=== PATIENT | male | born 1955 | race Caucasian/White ===

== ENCOUNTER 2021-11-30 16:51 | Inpatient (IN) | payer MEDICARE, OTHER ==
[~2021-11-30] VITALS: Ht 167.6 cm; Wt 69.0 kg
[2021-11-30 17:20] LABS: BASO % 0.6 % (0.0-2.0); EOS # 0.1 K/mm3 (0.0-0.7); EOS % 1.6 % (0.0-4.0); GRAN # 3.2 K/mm3 (1.4-6.5); GRAN % 64.8 % (42.2-75.2); LYMPH % 19.9 % (20.0-51.0); MEAN CELL VOLUME 86 fl (80.0-100.0); MEAN CORPUSCULAR HEMOGLOBIN 28 pg (27-31); MEAN CORPUSCULAR HGB CONC 33 g/dl (33.0-37.0); MEAN PLATELET VOLUME 8.8 fl (7.4-10.4); MONO # 0.6 K/mm3 (0.1-0.6); MONO % 12.7 % (1.7-9.3); PLATELET COUNT 233 K/mm3 (130-400); RED BLOOD COUNT 5.71 M/mm3 (4.20-5.60); REDCELL DISTRIBUTION WIDTH-CV 14.6 % (11.5-14.5)
[2021-11-30 17:47] LABS: ALANINE AMINOTRANSFERASE 15 U/L (0-55); ALKALINE PHOSPHATASE 87 U/L (40-150); ANION GAP 11 mmol/L (7-16); AST,SGOT 21 U/L (5-34); BILIRUBIN,TOTAL 0.5 mg/dL (0.2-1.2); BLOOD UREA NITROGEN 6 mg/dL (8-26); C-REACTIVE PROTEIN 3.38 mg/dL (0.00-0.50); CALCIUM 8.9 mg/dL (8.4-10.2); CARBON DIOXIDE 28 mmol/L (23-31); CHLORIDE 100 mmol/L (98-107); CREATININE, serum 0.77 mg/dL (0.72-1.25); GLUCOSE 113 mg/dL (70-99); POTASSIUM 4.2 mmol/L (3.5-4.5); SODIUM 139 mmol/L (136-145); TOTAL PROTEIN 7.1 gm/dL (6.2-8.1)
[2021-11-30 17:56] LABS: TROPONIN-I < 0.010 ng/mL (0.00-0.033)
[2021-11-30] MEDS ORDERED: CLARITIN 1010 MG/TAB PO (19:36)
[2021-11-30] MEDS ORDERED: THE MEDICINE SH1 T18 PO (19:37)
[2021-11-30] MEDS ORDERED: PROBIOTIC ACID1 EAC3 PO (19:38)
[2021-11-30] MEDS ORDERED: FLONASE NASAL S16 GM NS (19:39)
[2021-11-30] MEDS ORDERED: BREZTRI AEROS10.7 GM IH (19:40)
[2021-11-30] MEDS ORDERED: PROAIR HFA0.09 MG/AC IH (19:40)
[2021-11-30 21:29] VITALS: BP 155/84; PULSE 93; TEMP 97.5
[2021-11-30 23:46] VITALS: BP 130/90; PULSE 77; TEMP 97.9
[2021-12-01 02:50] LABS: ARTERIAL BLD GAS O2 SATURATION 90.9 % (92-100); ARTERIAL BLD GAS TCO2 CT 29.4; ARTERIAL BLOOD GAS BASE EXCESS 2.2 (-2-2); ARTERIAL BLOOD GAS PCO2 47.7 mmHg (35-45); ARTERIAL BLOOD GAS PO2 54.8 mmHg (80-100); ARTERIAL BLOOD GAS pH 7.39 (7.35-7.45)
[2021-12-01 03:43] VITALS: BP 135/66; PULSE 65; TEMP 97
--- NOTE | 2021-12-01 03:49 | NUR ---
PT ARRIVED TO THE MEDICAL FLOOR AROUND 2130HRS TO ROOM 312. PT A&O X4; VSS; O2 BPAP. PT DENIED CHEST PAIN, GENERAL PAIN, PALPITATIONS, N,V,D OR DIZZINESS. PT DID HAS SOME SOB, BUT STATED HIS BREATHING WAS MUCH BETTER. ADMISSIONS ASSESSMENT AND MED REC COMPLETE. PT ORIENTED TO ROOM AND HOSPITAL POLICY. POC DISCUSSED WITH PT. PT VERBALIZED UNDERSTANDING. ALL QUESTIONS AND CONCERNS ADDRESSED. PT EXPRESSED NO OTHER NEEDS AT THIS TIME. CALL LIGHT WITHIN REACH.
[2021-12-01 07:00] LABS: BASO % 0.5 % (0.0-2.0); GRAN # 1.7 K/mm3 (1.4-6.5); HEMATOCRIT 43.8 % (42.0-52.0); HEMOGLOBIN 14.2 g/dl (13.5-18.0); LYMPH # 0.4 K/mm3 (1.2-3.4); LYMPH % 19.2 % (20.0-51.0); MEAN CELL VOLUME 86 fl (80.0-100.0); MEAN CORPUSCULAR HEMOGLOBIN 28 pg (27-31); MEAN CORPUSCULAR HGB CONC 32 g/dl (33.0-37.0); MEAN PLATELET VOLUME 9.7 fl (7.4-10.4); MONO # 0.1 K/mm3 (0.1-0.6); MONO % 2.8 % (1.7-9.3); PLATELET COUNT 232 K/mm3 (130-400); REDCELL DISTRIBUTION WIDTH-CV 14.6 % (11.5-14.5)
[2021-12-01 07:10] LABS: CALCIUM 8.8 mg/dL (8.4-10.2); CREATININE, serum 0.6 mg/dL (0.72-1.25); POTASSIUM 4.4 mmol/L (3.5-4.5)
[2021-12-01 08:00] VITALS: BP 138/68; PULSE 93; TEMP 97.9
--- NOTE | 2021-12-01 09:23 | NUR ---
Scheduled medications given. Shift assessment performed. Patient currently requiring 4L of O2 via nasal cannula. States that his back is "just sore" but denies the need for interventions a this time. VSS. Patient A&O. Call light in reach.
[2021-12-01 12:00] VITALS: BP 134/71; PULSE 104; TEMP 98.2
--- NOTE | 2021-12-01 13:24 | NUR ---
Sw met with the pt to complete intake. Pt right away informed me that his niece is CM here at the hospital. Pt lives at home. Pt DPOA-HC(not in chart) his son, Óscar [phone]. Pt currently using BIPAP in hospital and uses nebulizer at home for COPD.Pt reports he has no PCP, but trying to get with [facility], however, his son thinks he should go to [facility]. He gets his medications from [facility], no trouble obtaining it. No other needs stated at this time. Sw to await further recommendations and follow up as needed. DC: Home
[2021-12-01 16:25] VITALS: BP 139/71; PULSE 91; TEMP 98.1
--- NOTE | 2021-12-01 17:44 | NUR ---
Patient has had an ok day. Currently requiring 3L of O2 via nasal cannula. VSS. Patient A&O. Denies any further pain, discomfort, SOA, or further needs at this time. Call light in reach.
[2021-12-01 20:15] VITALS: BP 143/66; PULSE 114; TEMP 98.6
[2021-12-01 23:33] VITALS: BP 115/60; PULSE 67; TEMP 97.4; TEMP 977.4
[2021-12-02 03:33] VITALS: BP 100/56; PULSE 61; TEMP 98.2
--- NOTE | 2021-12-02 06:00 | NUR ---
ASSESSMENT COMPLETE FOR THIS SHIFT. PT RESTING IN BED WATCHING TV. PT COMPLAINED OF BURNING/RAWNESS TO HIS SINUSES THAT HE RATED AN 8. PT REQUESTED TYLENOL. TYLENOL GIVEN. PT FELT THE TYLENOL HELPED. PT DENIED PALPITATIONS, N,V,D OR DIZZINESS. PT CONTINUES WITH SOME SOB WITH AMBULATION. PT EXPRESSED NO OTHER NEEDS AT THIS TIME. CALL LIGHT WITHIN REACH.
[2021-12-02 06:22] LABS: GRAN # 8.8 K/mm3 (1.4-6.5); GRAN % 89.7 % (42.2-75.2); HEMATOCRIT 43.2 % (42.0-52.0); HEMOGLOBIN 13.7 g/dl (13.5-18.0); LYMPH # 0.6 K/mm3 (1.2-3.4); LYMPH % 6.3 % (20.0-51.0); MEAN CELL VOLUME 87 fl (80.0-100.0); MEAN CORPUSCULAR HEMOGLOBIN 28 pg (27-31); MEAN CORPUSCULAR HGB CONC 32 g/dl (33.0-37.0); MEAN PLATELET VOLUME 9.3 fl (7.4-10.4); MONO # 0.4 K/mm3 (0.1-0.6); MONO % 3.7 % (1.7-9.3); PLATELET COUNT 247 K/mm3 (130-400); RED BLOOD COUNT 4.94 M/mm3 (4.20-5.60); REDCELL DISTRIBUTION WIDTH-CV 14.7 % (11.5-14.5)
[2021-12-02 06:36] LABS: CALCIUM 8.7 mg/dL (8.4-10.2); CREATININE, serum 0.75 mg/dL (0.72-1.25); POTASSIUM 4.6 mmol/L (3.5-4.5)
[2021-12-02 08:28] VITALS: BP 136/64; PULSE 84; TEMP 98
--- NOTE | 2021-12-02 09:25 | NUR ---
Initial visit attempt; Patient in isolation, Director Of [employer] talked with him from the door. He stated he is getting better and was receptive to Director Of Retail Analytics keeping him in her prayers.
--- NOTE | 2021-12-02 09:33 | NUR ---
Patient resting in bed upon entering the room. Patient c/o mild sinus dryness. Asked RT for humidification for O2. Patient currently on 4L O2 via NC and tolerating it well. Patient A&Ox4, and independent in the room. Call light is w/in reach. Patient encouraged to call if any needs arise.
[2021-12-02 12:10] VITALS: BP 166/61; PULSE 74; TEMP 98.1
[2021-12-02 17:21] VITALS: BP 153/76; PULSE 74; TEMP 98.1
--- NOTE | 2021-12-02 18:26 | NUR ---
Patient had nasal congestion that made him feel like he could not breathe. Hospitalist called and ordered flonase and mucinex. Humidification added to patient's O2 for patient comfort.
[2021-12-02 19:58] VITALS: BP 165/79; PULSE 109; TEMP 98.3
--- NOTE | 2021-12-02 22:32 | NUR ---
PATIENT ON 02@5L VIA IN PATIENT DID STATE THAT HE WOULD TRY BI-PAP TONIGHT TO ASSIST WITH BREATHING. PATIENT ALSO COMMUNICATION THAT HE DID QUIT SMOKING BUT CHEATED RECENTLY AND HIS BREATHING GOT WORSE. HE ALSO STATED THAT HE HAS BEEN EATING 30% OF MEALS AND DRINKING ALL OF ENSURE. HE DID STATE THAT HE GETS TIRED AND FULL. EDUCATED ON SPACING OUT MEALS AND TRYING TO DO MORE SMALL MEALS THEN BIG MEALS TO AID WITH BREATHING. CONTINUES ON LOVENOX FOR VTE, BLOOD CULTURES PENDING. PATIENT DOES GET SOB ON EXERTION. REMAINS ON CONTACT ISOLATION FOR PARAINFLUENZA. WILL CONTINUE TO MONITOR FOR ANY CHANGES.
[2021-12-02 23:53] VITALS: BP 125/73; PULSE 68; TEMP 97.4
--- NOTE | 2021-12-03 03:41 | NUR ---
PATIENT WAS PLACED ON BI-PAP THROUGHOUT NIGHT UNABLE TO SLEEP THROUGHOUT THE NIGHT PATIENT SEEMED RESTLESS. PATIENT UNABLE TO GET ANY SLEEP TONIGHT. NO PAIN NOTED JUST UNABLE TO RELAX. WILL CONTINUE TO MONITOR OR REPOSITION FOR COMFORT THROUGHOUT SHIFT.
[2021-12-03 06:43] LABS: BASO % 0.1 % (0.0-2.0); GRAN # 9.7 K/mm3 (1.4-6.5); GRAN % 89.1 % (42.2-75.2); HEMATOCRIT 45.6 % (42.0-52.0); HEMOGLOBIN 14.1 g/dl (13.5-18.0); LYMPH # 0.7 K/mm3 (1.2-3.4); LYMPH % 6.3 % (20.0-51.0); MEAN CELL VOLUME 89 fl (80.0-100.0); MEAN CORPUSCULAR HEMOGLOBIN 28 pg (27-31); MEAN CORPUSCULAR HGB CONC 31 g/dl (33.0-37.0); MEAN PLATELET VOLUME 9.5 fl (7.4-10.4); MONO # 0.4 K/mm3 (0.1-0.6); MONO % 3.9 % (1.7-9.3); PLATELET COUNT 278 K/mm3 (130-400); RED BLOOD COUNT 5.11 M/mm3 (4.20-5.60); REDCELL DISTRIBUTION WIDTH-CV 14.5 % (11.5-14.5)
[2021-12-03 07:04] LABS: CALCIUM 9.2 mg/dL (8.4-10.2); CREATININE, serum 0.68 mg/dL (0.72-1.25); POTASSIUM 4.5 mmol/L (3.5-4.5)
[2021-12-03 07:35] VITALS: BP 140/65; PULSE 79; TEMP 97.7
--- NOTE | 2021-12-03 09:12 | NUR ---
Shift assessment preformed. Scheduled medications given. Patient currently requring 4 L of O2 via nasal cannula. SOB noted when at rest. VSS. Patient A&O. Patient denies any pain, discomfort, or further needs at this time. Call light in reach.
[2021-12-03 11:24] VITALS: BP 132/71; PULSE 74; TEMP 98.1
[2021-12-03 15:26] VITALS: BP 141/67; PULSE 74; TEMP 98.3
--- NOTE | 2021-12-03 17:48 | NUR ---
Patient has had an uneventful day. Currently requiring 4L of O2 via nasal cannula. Dyspnea upon exertion noted. Patient denies any pain, discomfort, or further needs a this time. Call light in reach. VSS. Patient A&O.
--- NOTE | 2021-12-03 19:43 | NUR ---
PATIENT TO TRANSITION OFF OF BIPAP AT NIGHT TO NASAL CANULA RESPIRATORY THERAPIST SPOKE WITH PATIENT AND EDUCATED ON TRANSITION TO NASAL CANAL DUE TO PATIENT NOT HAVING BI-PAP AT HOME. PATIENT REMAINS ON SOLU-MEDROL TAPERING DOWN. PATIENT STATED HE FEELS MUCH BETTER TODAY MOVING AROUND MORE. STILL HAVING SOME SOB ON EXERTION AND RESPIRATORY THERAPIST STATED PATIENT SOUNDS TIGHT AND NOT WANTING TO TITRATE OFF OF 4 LITERS TONIGHT 02SAT HIGHEST 92% AT REST.
[2021-12-03 20:15] VITALS: BP 158/78; PULSE 106; TEMP 98.3
[2021-12-04 00:11] VITALS: BP 123/71; PULSE 81; TEMP 98.6
--- NOTE | 2021-12-04 03:40 | NUR ---
PATIENT SLEPT BETTER TONIGHT THEN LAST NIGHT. PATIENT WANTED TO WEAR BIPAP LAST NIGHT. EDUCATED PATIENT ON TRANSITION TO NASAL CANULA TOMORROW NIGHT. CONTINUES WITH SOLU-MEDROL, RT WORKING WITH PATIENT WELL. PATIENT AMBULATING AND MORE MOBILE TODAY. SLEEPING AT THIS TIME WILL CONTINUE TO MONITOR.
[2021-12-04 04:47] VITALS: BP 124/69; PULSE 63; TEMP 98.8
[2021-12-04 06:41] LABS: BASO % 0.1 % (0.0-2.0); GRAN # 6.8 K/mm3 (1.4-6.5); GRAN % 88.6 % (42.2-75.2); HEMATOCRIT 45.6 % (42.0-52.0); HEMOGLOBIN 14.3 g/dl (13.5-18.0); LYMPH # 0.5 K/mm3 (1.2-3.4); LYMPH % 6.6 % (20.0-51.0); MEAN CELL VOLUME 89 fl (80.0-100.0); MEAN CORPUSCULAR HEMOGLOBIN 28 pg (27-31); MEAN CORPUSCULAR HGB CONC 31 g/dl (33.0-37.0); MEAN PLATELET VOLUME 9.4 fl (7.4-10.4); MONO # 0.3 K/mm3 (0.1-0.6); MONO % 4.1 % (1.7-9.3); PLATELET COUNT 276 K/mm3 (130-400); RED BLOOD COUNT 5.13 M/mm3 (4.20-5.60); REDCELL DISTRIBUTION WIDTH-CV 14.4 % (11.5-14.5)
[2021-12-04 06:44] LABS: CALCIUM 9.3 mg/dL (8.4-10.2); CREATININE, serum 0.68 mg/dL (0.72-1.25); POTASSIUM 4.5 mmol/L (3.5-4.5)
[2021-12-04 07:59] VITALS: BP 141/78; PULSE 100; TEMP 98.3
--- NOTE | 2021-12-04 09:19 | NUR ---
Shift assessment preformed. Scheduled medications given. Patient currently requiring 4L of O2 via nasal cannula. Denies any pain, discomfort, SOA, or further needs at this time. Call light in reach. Fall percautions in place. VSS. Patient A&O.
--- NOTE | 2021-12-04 10:47 | NUR ---
Notified by RT that the patient is going to need 4L of continuous oxygen at the time of discharge. Patient would like established with [facility] and will need to have it delivered before discharge. Patient's signed order and clinical information faxed to DME agency.
[2021-12-04] MEDS ORDERED: PROAIR HFA0.09 MG/AC IH (10:51)
[2021-12-04] MEDS ORDERED: MONODOX100 PO (10:51)
[2021-12-04] MEDS ORDERED: MUCUS RELIEF200 MG PO (10:53)
[2021-12-04] MEDS ORDERED: PREDNISONE10 MG PO (11:02)
[2021-12-04 11:28] VITALS: BP 159/65; PULSE 95; TEMP 98.3
--- NOTE | 2021-12-04 12:19 | NUR ---
Patient deemed fit for discharge. IV DC'd, catheter intact, no signs of phlebitis. Discharge education/instructions given. All questions answered. VSS. Patient A&O. Currently requiring 4L of O2 via nasal cannula. Waiting for delivery of home O2 before patient is transported home. Call light in reach.
--- NOTE | 2021-12-04 15:53 | NUR ---
Home O2 delivered. Patient escorted out of building via wheelchair by [facility] Staff. Family transporting home. Patient A&O. VSS. Patient denies any pain, discomfort, SOA, or further needs at this time.
== END 2021-12-04 15:45 | disposition home or self-care (01) | DRG 189 ==
LOC: COL.ER 16:51 → MEDICAL 18:13
PROVIDERS: Emergency Medicine; Physician Assistant; Student in an Organized Health Care Education/Training Program
PROC: 5A09457 Assistance with Respiratory Ventilation, 24-96 Consecutive Hours, Continuous Positive Airway Pressure (ICD-10-PCS; principal; 2021-11-30)
DX: J96.01 Acute respiratory failure with hypoxia (principal); J44.1 Chronic obstructive pulmonary disease with (acute) exacerbation; E44.0 Moderate protein-calorie malnutrition; I10 Essential (primary) hypertension; B34.8 Other viral infections of unspecified site; F17.210 Nicotine dependence, cigarettes, uncomplicated; K40.90 Unilateral inguinal hernia, without obstruction or gangrene, not specified as recurrent; Z20.822 Contact with and (suspected) exposure to COVID-19; Z85.828 Personal history of other malignant neoplasm of skin; Z85.038 Personal history of other malignant neoplasm of large intestine; Z68.24 Body mass index [BMI] 24.0-24.9, adult
CPT/HCPCS: 99223-AI; 99232-AI; 99233-AI; 99239; J1650; J2920; J2930; J7030

== ENCOUNTER → 2023-03-27 | Outpatient (CLI) | payer MEDICARE, OTHER ==
[~2023-03-27] MED LIST: ALLEGRA 180MG180 MG PO; BREZTRI AEROS10.7 GM IH; CLARITIN 1010 MG/TAB PO; FLONASE NASAL S16 GM NS; MEDROL 4MG DOSPA4 MG PO; MONODOX100 PO; MOTRIN 200200 MG/TAB PO; MUCINEX 60600 MG/TA1 PO; MUCUS RELIEF200 MG PO; NASACORT OTC NS; OXYGEN; PREDNISONE10 MG PO; PROAIR HFA0.09 MG/AC IH; PROBIOTIC ACID1 EAC3 PO; THE MEDICINE SH1 T18 PO; TYLENOL 325MG325 MG PO
== END ==
LOC: COL.LAB 10:17
DX: R09.81 Nasal congestion (principal)

== ENCOUNTER → 2024-03-04 | Outpatient (CLI) | payer MEDICARE, OTHER | LOC: COL.RAD 14:16 | DX: Z12.2 Encounter for screening for malignant neoplasm of respiratory organs (principal); J43.9 Emphysema, unspecified; R91.8 Other nonspecific abnormal finding of lung field; F17.200 Nicotine dependence, unspecified, uncomplicated ==